=== PATIENT | female | born 1990 | race Caucasian/White ===

== ENCOUNTER 2016-07-16 22:30 | Emergency (ER) | payer SELFPAY ==
[2016-07-16 22:35] VITALS: BP 127/78
[2016-07-16] MEDS ORDERED: CEPHALEXIN 500 MG CAPSULE PO ONE (23:54)
[2016-07-16] MEDS ORDERED: SULFAMETHOXAZOLE/TRIMETHOPRIM 800-160 MG TABLET PO ONE (23:54)
--- NOTE | 2016-07-16 23:59 | ER Document Report ---
ED General - General Chief Complaint: Rash Stated Complaint: RASH Time Seen by Provider: 07/16/16 23:17 Notes: Patient is a 25-year-old female without past medical history who presents with concerns of a diffuse body rash. Patient states that she developed an abscess on her right thigh approximately one month ago. She states that this expressed a large amount of purulent material on its own and then resolved. She notes that approximately 2 weeks after the abscess first formed she developed a blistering skin rash over her entire body particularly on her lower extremities. She states that the area became quite erythematous and then healed. She saw in the physician was started on hydroxyzine and prednisone without any improvement of her symptoms. She has not noted anything worsens or symptoms. She does describe the area of the rash as feeling like a sunburn with a dull, constant, burning discomfort. No history of similar symptoms in the past. She denies any fever or constitutional symptoms. - Related Data Allergies/Adverse Reactions: No Known Allergies Allergy (Unverified 07/16/16 22:33) Past Medical History - General Information source: Patient - Social History Smoking Status: Never Smoker Frequency of alcohol use: None Drug Abuse: None Lives with: Family Family History: Reviewed & Not Pertinent Renal/ Medical History: Denies: Hx Peritoneal Dialysis Review of Systems - Review of Systems Notes: Constitutional: Negative for fever. HENT: Negative for sore throat. Eyes: Negative for visual changes. Cardiovascular: Negative for chest pain. Respiratory: Negative for shortness of breath. Gastrointestinal: Negative for abdominal pain, vomiting or diarrhea. Genitourinary: Negative for dysuria. Musculoskeletal: Negative for back pain. Skin: Positive for rash. Neurological: Negative for headaches, weakness or numbness. 10 point ROS negative except as marked above and in HPI. Physical Exam - Vital signs Vitals: Temp Pulse Resp BP Pulse Ox 98.3 F 79 18 127/78 H 100 07/16/16 22:33 07/16/16 22:33 07/16/16 22:33 07/16/16 22:33 07/16/16 22:33 Interpretation: Normal Notes: PHYSICAL EXAMINATION: GENERAL: Well-appearing, well-nourished and in no acute distress. HEAD: Atraumatic, normocephalic. EYES: Pupils equal round and reactive to light, extraocular movements intact, sclera anicteric, conjunctiva are normal. ENT: nares patent, oropharynx clear without exudates. Moist mucous membranes. NECK: Normal range of motion, supple without lymphadenopathy LUNGS: Breath sounds clear to auscultation bilaterally and equal. No wheezes rales or rhonchi. HEART: Regular rate and rhythm without murmurs ABDOMEN: Soft, nontender, normoactive bowel sounds. No guarding, no rebound. No masses appreciated. EXTREMITIES: Normal range of motion, no pitting or edema. No cyanosis. NEUROLOGICAL: No focal neurological deficits. Moves all extremities spontaneously and on command. PSYCH: Normal mood, normal affect. SKIN: Warm, Dry, normal turgor, there is mild blistering of the thighs with peeling of the superficial skin. Diffuse erythema with minimal tenderness to palpation over the bilateral lower extremities as well as the upper extremities and torso. Course - Re-evaluation Re-evalutation: 07/17/16 02:57 Patient is overall very well in appearance with a blistering rash of the bilateral lower extremity, upper extremity and trunk. The area where the abscess was located is overall well in appearance without any ongoing focal erythema. This appears most consistent with either a staph or strep scalded skin syndrome given that this appears to have been an abscess is concerning from a skin abrasion and subsequently developing a diffuse skin rash. She has not had any response to steroids and the lesions themselves do not appear consistent with urticaria. I will therefore empirically treat her for staph and strep with Bactrim and Keflex. No need for admission at this time as patient does not appear dehydrated and is otherwise very well in appearance. At this time will discharge with return precautions and follow-up recommendations. Verbal discharge instructions given at the bedside and opportunity for questions given. Medication warnings reviewed. Patient is in agreement with this plan and has verbalized understanding of return precautions and the need for primary care follow-up in the next 24-72 hours. - Vital Signs Vital signs: Temp Pulse Resp BP Pulse Ox 98.3 F 79 18 127/78 H 100 07/16/16 22:33 07/16/16 22:33 07/16/16 22:33 07/16/16 22:33 07/16/16 22:33 Discharge - Discharge Clinical Impression: Staphylococcal scalded skin syndrome Condition: Good Disposition: HOME, SELF-CARE Additional Instructions: Please take the antibiotics as directed until completed. Return if you become lethargic, developed fever greater than 101F, have persistent vomiting, or any other symptoms that are worrisome to you. Prescriptions: Cephalexin Monohydrate [Keflex 500 mg Capsule] 500 mg PO QID #28 capsule Sulfamethoxazole/Trimethoprim [Bactrim Ds Tablet] 1 tab PO BID #14 tablet
== END 2016-07-17 00:10 | disposition home or self-care (01) ==
LOC: ER 22:30
DX: L00 Staphylococcal scalded skin syndrome (principal); L49.0 Exfoliation due to erythematous condition involving less than 10 percent of body surface
CPT/HCPCS: 99282